=== PATIENT | female | born 1970 | race Caucasian/White ===

== ENCOUNTER 2016-03-01 22:59 | Emergency (ER) | payer SELFPAY ==
[~2016-03-01] VITALS: Ht 162.6 cm; Wt 95.6 kg
[2016-03-01 23:05] VITALS: BP 133/89; PULSE 95; RESP 16; TEMP 99.7; O2SAT 97
--- NOTE | 2016-03-02 01:02 | PD ---
HPI Chief Complaint: Musculoskeletal Complaint Time Seen by Provider: 00:59 Travel History International Travel<30 days: No Contact w/Intl Traveler<30days: No Traveled to known affect area: No History of Present Illness HPI 45-year-old female presents to the emergency department by private transportation for complaint of right knee pain since Saturday when she had a non-syncopal slip and fall down 2 steps while carrying a chair. Patient states she twisted her right lower extremity. Patient states she has focal isolated pain to the lateral aspect of the right knee. Patient is not noticed any bruising redness swelling effusion decreased range of motion but does note pain with range of motion. Patient states pain does refer down the lateral aspect of the right lower leg. Patient denies hitting her head or loss of consciousness neck injury back injury chest injury or abdomen injury. Upper extremities were not affected. She had some bruising to the left lateral thigh but denies any bruising to the right lower extremity where she has focal pain. No previous injury to the right knee or right lower leg. Pain 8/10. PFSH Past Medical History ?: Not Social History Alcohol Use: No Tobacco Use: Yes Substance Use: No Allergies-Medications (Allergen,Severity, Reaction): Coded Allergies: No Known Allergies (Unverified , 03/02/16) Review of Systems Except as stated in HPI: all other systems reviewed are Neg General / Constitutional: No: Fever, Chills HENT: No: Congestion Respiratory: No: Shortness of Breath Gastrointestinal: No: Abdominal Pain Genitourinary: No: Flank Pain Musculoskeletal: Positive: Pain (right knee), No: Myalgias, Arthralgias Skin: No Rash Neurologic: No: Weakness, Dizziness, Syncope, Focal Abnormalities, Coordination Problem Psychiatric: No: Anxiety Hematologic/Lymphatic: No: Lymph Node Enlargement Physical Exam Narrative GENERAL: Well developed well-nourished female in no acute distress no respiratory distress SKIN: Warm and dry. HEAD: Normocephalic. EYES: No scleral icterus. No injection or drainage. NECK: Supple, trachea midline. No JVD or lymphadenopathy. CARDIOVASCULAR: Regular rate and rhythm without murmurs, gallops, or rubs. RESPIRATORY: Breath sounds equal bilaterally. No accessory muscle use. GASTROINTESTINAL: Abdomen soft, non-tender, nondistended. MUSCULOSKELETAL: No cyanosis, or edema. Bilateral lower extremities demonstrate full range of motion neurovascular tendon intact or sounds pedis pulses 2+ to palpation; attention right knee no effusion no ecchymosis no induration no erythema no ballotable effusion point tenderness over the proximal fibula at the lateral collateral ligament insertion site. BACK: Nontender without obvious deformity. No CVA tenderness. Data Data Last Documented VS Vital Signs Date Time Temp Pulse Resp B/P Pulse Ox O2 Delivery O2 Flow Rate FiO2 03/01/16 23:05 99.7 95 16 133/89 97 Orders Knee, Complete (4vws) (03/02/16 ) Tibia/Fibula (Ap/Lat) (03/02/16 ) [facility] Medical Decision Making Medical Screen Exam Complete: Yes Emergency Medical Condition: Yes Medical Record Reviewed: Yes Interpretation(s) Last Impressions Tibia/Fibula X-Ray 03/02/16 0000 Signed Impressions: Service Date/Time: Wednesday, March 02, 2016 01:25 - CONCLUSION: No evidence of recent bony injury. Clyde Hernandes MD Knee X-Ray 03/02/16 0000 Signed Impressions: Service Date/Time: Wednesday, March 02, 2016 01:23 - CONCLUSION: No evidence of recent bone injury. Clyde Hernandes MD Differential Diagnosis Knee sprain strain fracture subluxation dislocation collateral ligament injury internal derangement Narrative Course Review immobilizer applied after imaging studies revealed no acute bony abnormality Patient stable for outpatient management and follow-up with primary care physician and orthopedist as needed Diagnosis Primary Impression: Right knee injury Qualified Code: S89.91XA - Right knee injury, initial encounter Referrals: Primary Care Physician call for appointment Patient Instructions: General Instructions Additional Instructions: Use ice intermittently first 12 34 hours then moist heat for comfort Wear knee immobilizer for knee support Follow-up with your primary care physician or orthopedist for any ongoing symptoms Return to the emergency department for any concerns or change in condition Use ibuprofen/Advil/Motrin as tolerated for pain associated with inflammation Med/Other Pt SpecificInfo: Prescription(s) given Scripts Acetaminophen-Codeine (Tylenol-Codeine #3)300-30 mg Tab1 Tab PO Q4H PRN (PAIN) # 10 TAB Ref 0 Prov:Uma Banerjee MD 03/02/16 Disposition: 01 DISCHARGE HOME Condition: Stable Uma Banerjee MD Mar 02, 2016 01:01
--- NOTE | 2016-03-02 01:41 | RADHPO ---
EXAM DATE/TIME: 03/02/2016 01:23 [facility] COMPARISON: No previous studies available for comparison. INDICATIONS : Patient states she tripped down the stairs, right knee pain. MEDICAL HISTORY : None. SURGICAL HISTORY : None. ENCOUNTER: Initial ACUITY: 4 - 6 days PAIN SCORE: 6/10 LOCATION: Right Knee FINDINGS: Four view examination of the right knee demonstrates no evidence of fracture or dislocation. Bony mi neralization is normal. The articular surfaces are intact. The suprapatellar soft tissues have a no rmal configuration. CONCLUSION: No evidence of recent bone injury. Clyde Hernandes MD on March 02, 2016 at 1:39 Board Certified Radiologist. This report was verified electronically.
--- NOTE | 2016-03-02 01:41 | RADHPO ---
EXAM DATE/TIME: 03/02/2016 01:25 [facility] COMPARISON: No previous studies available for comparison. INDICATIONS : Patient states she tripped down the stairs, proximal Tib/Fib pain. MEDICAL HISTORY : None. SURGICAL HISTORY : None. ENCOUNTER: Initial ACUITY: 4 - 6 days PAIN SCORE: 6/10 LOCATION: Right Tib/Fib FINDINGS: Two view examination of the right tibia demonstrates no evidence of fracture or dislocation. Bony mi neralization is normal. The soft tissue structures are intact. CONCLUSION: No evidence of recent bony injury. Clyde Hernandes MD on March 02, 2016 at 1:40 Board Certified Radiologist. This report was verified electronically.
[2016-03-02] MEDS ORDERED: TYLETAB34 PO (02:13)
[2016-03-02] MEDS ORDERED: IBUPROFEN 800 MG TAB PO ONE (02:15)
[2016-03-02 02:36] VITALS: BP 142/78
== END 2016-03-02 02:40 | disposition home or self-care (01) ==
LOC: PHED 22:59
DX: S89.91XA Unspecified injury of right lower leg, initial encounter (principal); W01.0XXA Fall on same level from slipping, tripping and stumbling without subsequent striking against object, initial encounter; W10.9XXA Fall (on) (from) unspecified stairs and steps, initial encounter; Z72.0 Tobacco use
CPT/HCPCS: 73564; 73590; 99283; L1830

== ENCOUNTER 2017-04-20 15:11 | Emergency (ER) | payer SELFPAY ==
[~2017-04-20] VITALS: Ht 162.6 cm; Wt 102.0 kg
[~2017-04-20 15:11] MED LIST: TYLETAB34 PO
[2017-04-20 15:26] VITALS: BP 132/85; PULSE 77; RESP 16; TEMP 98.4; O2SAT 98
--- NOTE | 2017-04-20 17:27 | PD ---
HPI . Dizziness Chief Complaint: Dizziness Time Seen by Provider: 16:57 Travel History International Travel<30 days: No Contact w/Intl Traveler<30days: No Traveled to known affect area: No History of Present Illness HPI Patient presents with a chief complaint of dizziness. Basically, she has a stopped up nose and stopped up ears. She states her face feels swollen. This all started yesterday or maybe a day before. She states her symptoms have been unrelieved by hchv-tlh-[id number] medications. Her symptoms are mild. PFSH Past Medical History Tetanus Vaccination: < 5 Years Influenza Vaccination: No ?: Not LMP: 04/09/17 Past Surgical History Surgical History: No Previous Surgery Social History Alcohol Use: Yes (SOCIAL) Tobacco Use: Yes (1.5 PPD) Substance Use: No Allergies-Medications (Allergen,Severity, Reaction): Coded Allergies: No Known Allergies (Unverified Adverse Reaction, Unknown, 04/20/17) Reported Meds & Prescriptions Reported Meds & Active Scripts Active Review of Systems Except as stated in HPI: all other systems reviewed are Neg HENT: Positive: Lightheadedness, Congestion, Other (ear fullness) Physical Exam Narrative GENERAL: Awake and alert and in no acute distress. SKIN: Warm and dry. Color and turgor. HEAD: Normocephalic/atraumatic. EYES: Pupils are equal. Extraocular movements are intact. ENT: TMs are shiny martinez with good light reflex bilaterally. Oropharynx has no erythema. NECK: Normal range of motion. Supple with no cervical lymphadenopathy. CARDIOVASCULAR: Regular rate and rhythm. RESPIRATORY: Nonlabored respirations. MUSCULOSKELETAL: Atraumatic. NEUROLOGICAL: A and O 3. Cranial nerves II through XII grossly intact. Hims Manager strength are full and equal. Fyshlt-xcyd-isjuvb exam is intact. PSYCHIATRIC: Appropriate mood and affect. Data Data Last Documented VS Vital Signs Date Time Temp Pulse Resp B/P (MAP) Pulse Ox O2 Delivery O2 Flow Rate FiO2 04/20/17 16:23 Room Air 04/20/17 15:26 98.4 77 16 132/85 (101) 98 MDM Medical Decision Making Medical Screen Exam Complete: Yes Emergency Medical Condition: Yes Differential Diagnosis Differential diagnosis of dizziness includes but is not limited to vertigo, dehydration, acute blood loss, sepsis, ACS Narrative Course This patient presents with a chief complaint of dizziness. She also has nasal congestion and ear fullness. Clinically, she has eustachian tube dysfunction. Diagnosis Primary Impression: Eustachian tube dysfunction Qualified Codes: H69.83 - Other specified disorders of eustachian tube, bilateral Additional Instructions: I recommend the use of a Neti Pot. You may use a nasal spray such as Afrin for up to 3 days as needed for nasal congestion. You may take an [id number]-zuf-[id number] antihistamine such as Zyrtec, Tamela or Claritin as needed for runny secretions. You may take pseudoephedrine as needed for congestion. You will need to sign for this at the pharmacy. You may take plain Mucinex, 1200 mg twice a day as needed for thick secretions. You may take a cough syrup such as Delsym as needed for cough. Motrin as needed for fever and body aches. Throat lozenges/sprays as needed for sore throat. Warm salt water gargles for sore throat. Hot tea with lemon and honey also helps soothe a sore throat. Scripts No Active Prescriptions or Reported Meds Disposition: 01 DISCHARGE HOME Condition: Stable Vanessa Carey MD Apr 20, 2017 17:26
[2017-04-20 17:37] VITALS: BP 127/78
== END 2017-04-20 17:43 | disposition home or self-care (01) ==
LOC: PHED 15:11
DX: H69.83 Other specified disorders of Eustachian tube, bilateral (principal); F17.210 Nicotine dependence, cigarettes, uncomplicated
CPT/HCPCS: 99282